=== PATIENT | female | born 1970 | race Caucasian/White ===

== ENCOUNTER 2024-04-06 04:17 | Day surgery (SDC) | payer OTHER ==
[2024-04-06] VITALS (239 sets, daily range): BP systolic 45–172; BP diastolic 33–117
[~2024-04-06] VITALS: Ht 160 cm; Wt 69.6 kg
[2024-04-06] MEDS ORDERED: ALBUTEROL SULFATE 2.5 MG VIAL IN PRN (07:30)
[2024-04-06] MEDS ORDERED: LACTATED RINGER'S 1,000 ML IV PRN ×3 (07:30→19:00)
[2024-04-06] MEDS ORDERED: CYANOCOBALAMIN 500 MCG/TAB ( B12) PO PRN (07:30)
[2024-04-06] MEDS ORDERED: PANTOPRAZOLE SODIUM Sesquihydr 40 MG/TAB PO PRN (07:30)
[2024-04-06] MEDS ORDERED: diazePAM 5 MG/TAB PO PRN ×2 (07:30→08:30)
[2024-04-06] MEDS ORDERED: cloNIDine HCL 0.1 MG/TAB PO PRN (07:30)
[2024-04-06] MEDS ORDERED: SCOPOLAMINE 1.5 MG DIS TD PRN (07:30)
[2024-04-06] MEDS ORDERED: FAMOTIDINE 20 MG/TAB PO PRN (07:30)
[2024-04-06] MEDS ORDERED: ASCORBIC ACID 4,000 MG in SODIUM CHLORIDE 0.9% 1,000 ML IV SCH (08:00)
[2024-04-06 09:00] LABS: BASO% 0.6 % (0-3); EOS% 8.1 % (0-8); HEMATOCRIT 36.8 % (37.0-47.0); HEMOGLOBIN 12.1 g/dl (12.0-16.0); LYMPH% 36.9 % (15-41); MEAN CELL VOLUME 100.8 fL CALC (80.0-100.0); MEAN CORPUSCULAR HGB 33.2 pG CALC (26.0-32.0); MEAN CORPUSCULAR HGB CONC 32.9 g/dL CAL (32.0-36.0); MONO% 7.2 % (2-13); NEUT# 2.58 thou/uL (2.00-7.15); NEUT% 47.2 % (42-76); RED BLOOD COUNT 3.65 mill/uL (4.20-5.60); RED CELL DISTRI WIDTH 12.8 % (11.5-15.5)
[2024-04-06 09:11] LABS: ALBUMIN 4.2 g/dL (3.2-5.0); BILIRUBIN, TOTAL 0.4 mg/dL (0.02-1.3); CREATININE 0.7 mg/dL (0.5-1.0); POTASSIUM 3.9 mmol/l (3.5-5.1); TOTAL PROTEIN 6.9 g/dL (6.3-8.2)
[2024-04-06] MEDS ORDERED: ONDANSETRON HCl 4 MG/2 ML SDV IV PRN ×3 (09:25→19:00)
[2024-04-06] MEDS ORDERED: cloNIDine HYDROCHLORIDE 100 MCG/ML 10 ML INJ IV PRN (09:25)
[2024-04-06] MEDS ORDERED: STERILE WATER FOR IRRIGATION 1,000 ML BTL IR PRN (09:25)
[2024-04-06] MEDS ORDERED: DEXAMETHASONE SODIUM PHOSPHATE PF 10 MG/ML SDV IV PRN ×2 (09:25→19:00)
[2024-04-06] MEDS ORDERED: diazePAM 5 MG/TAB VT PRN (09:25)
[2024-04-06] MEDS ORDERED: NALTREXONE HCL 50 MG/TAB VT PRN (09:25)
[2024-04-06] MEDS ORDERED: LIDOCAINE HCL 1% (10MG/ML) 100 MG/10 ML MDV IV PRN (09:25)
[2024-04-06] MEDS ORDERED: POTASSIUM CHLORIDE 20 MEQ/100 ML BAG IV PRN (09:25)
[2024-04-06] MEDS ORDERED: THIAMINE HCL 100 MG/ML 2ML VIAL IV PRN (09:25)
[2024-04-06] MEDS ORDERED: SUCCINYLCHOLINE CHLORIDE 20 MG/ML 10ML VIAL IV PRN (09:25)
[2024-04-06] MEDS ORDERED: PROPOFOL 100 ML IV PRN (09:25)
[2024-04-06] MEDS ORDERED: MIDAZOLAM HCL 2 MG/2 ML VIAL IV PRN (09:25)
[2024-04-06] MEDS ORDERED: MAGNESIUM SULFATE HEPTAHYDRATE 100 ML IV PRN (09:25)
[2024-04-06] MEDS ORDERED: ROCURONIUM BROMIDE 10 MG/ML 5ML VIAL IV PRN (09:25)
[2024-04-06] MEDS ORDERED: PROPOFOL 10 MG/ML 100ML VIAL IV PRN (09:25)
[2024-04-06] MEDS ORDERED: DiphenhydrAMINE HCL 50 MG/ML SDV IV PRN (09:25)
[2024-04-06] MEDS ORDERED: LIDOCAINE HCL 1% (10MG/ML) 100 MG/10 ML MDV VT PRN ×2 (09:25)
[2024-04-06] MEDS ORDERED: OCTREOTIDE ACETATE 100 MCG/VIAL SDV SC PRN (09:25)
[2024-04-06] MEDS ORDERED: cloNIDine HCL 0.1 MG/TAB VT PRN (09:25)
[2024-04-06] MEDS ORDERED: TRAZODONE100 MG PO (09:30)
[2024-04-06] MEDS ORDERED: LUNESTA2 MG PO (09:32)
[2024-04-06] MEDS ORDERED: LIOTHYRONINE5 MCG PO (09:37)
[2024-04-06] MEDS ORDERED: LOPRESSOR25 M1 PO (09:38)
[2024-04-06] MEDS ORDERED: NEURONTIN600 MG PO ×2 (09:40→09:45)
[2024-04-06] MEDS ORDERED: ZANAFLEX4 MG PO (09:42)
[2024-04-06] MEDS ORDERED: LIDOCAINE HCL 1% (10MG/ML) 100 MG/10 ML MDV IV SCH (17:30)
[2024-04-06] MEDS ORDERED: KETOROLAC TROMETHAMINE 30 MG/ML SDV IV SCH (17:30)
[2024-04-06] MEDS ORDERED: ACETAMINOPHEN 1,000 MG/100 ML VIAL IV SCH (17:30)
[2024-04-06] MEDS ORDERED: PROMETHAZINE HCL 12.5 MG in SODIUM CHLORIDE 0.9% 50 ML IV PRN (19:00)
[2024-04-06] MEDS ORDERED: KETOROLAC TROMETHAMINE 30 MG/ML SDV IV PRN (19:00)
[2024-04-06] MEDS ORDERED: ACETAMINOPHEN 500 MG TAB PO PRN (19:00)
[2024-04-06] MEDS ORDERED: HALOPERIDOL LACTATE 5 MG/ML SDV IV PRN (19:00)
[2024-04-06] MEDS ORDERED: PROMETHAZINE HCL 25 MG in SODIUM CHLORIDE 0.9% 50 ML IV PRN (19:00)
[2024-04-06] MEDS ORDERED: ACETAMINOPHEN 1,000 MG/100 ML VIAL IV PRN (19:00)
[2024-04-06] MEDS ORDERED: PATIENT' OWN MED CONTROLLED 1 EA DOSE IV PRN (21:00)
[2024-04-06] MEDS ORDERED: diazePAM 10 MG/2 ML VIAL IV PRN (21:00)
[2024-04-06] MEDS ORDERED: clonazePAM 1 MG/TAB PO SCH (23:00)
[2024-04-06] MEDS ORDERED: cloNIDine HCL 0.1 MG/TAB PO SCH (23:00)
[2024-04-07] MEDS ORDERED: clonazePAM 1 MG/TAB PO PRN ×2 (04:00→08:00)
[2024-04-07] MEDS ORDERED: cloNIDine HCL 0.1 MG/TAB PO PRN (04:00)
[2024-04-07 04:18] VITALS: BP 151/68
[2024-04-07 05:48] LABS: BASO% 0.3 % (0-3); HEMATOCRIT 38.5 % (37.0-47.0); HEMOGLOBIN 12.9 g/dl (12.0-16.0); IMMATURE GRANULOCYTES 0.1 % (0.0-5.0); LYMPH% 11.4 % (15-41); MEAN CELL VOLUME 99.7 fL CALC (80.0-100.0); MEAN CORPUSCULAR HGB 33.4 pG CALC (26.0-32.0); MEAN CORPUSCULAR HGB CONC 33.5 g/dL CAL (32.0-36.0); MONO% 2.5 % (2-13); NEUT# 6.39 thou/uL (2.00-7.15); NEUT% 85.7 % (42-76); RED BLOOD COUNT 3.86 mill/uL (4.20-5.60); RED CELL DISTRI WIDTH 12.4 % (11.5-15.5)
[2024-04-07 07:24] VITALS: BP 160/74
[2024-04-07] MEDS ORDERED: PANTOPRAZOLE SODIUM Sesquihydr 40 MG/TAB PO SCH (08:00)
[2024-04-07] MEDS ORDERED: NALTREXONE HCL 50 MG/TAB PO SCH ×2 (08:00→15:00)
[2024-04-07] MEDS ORDERED: cloNIDine HCL 0.1 MG/TAB PO SCH ×4 (08:00→23:00)
[2024-04-07] MEDS ORDERED: ACETAMINOPHEN 325 MG/TAB PO SCH (08:00)
[2024-04-07 08:32] LABS: ALBUMIN 4.3 g/dL (3.2-5.0); BILIRUBIN, TOTAL 0.5 mg/dL (0.02-1.3); CREATININE 0.6 mg/dL (0.5-1.0); MAGNESIUM 1.9 mg/dL (1.6-2.3); POTASSIUM 3.8 mmol/l (3.5-5.1); TOTAL PROTEIN 6.8 g/dL (6.3-8.2)
[2024-04-07] MEDS ORDERED: MAGNESIUM OXIDE 400 MG/TAB PO PRN (09:00)
[2024-04-07] MEDS ORDERED: ACETAMINOPHEN 500 MG TAB PO PRN ×2 (09:00→19:00)
[2024-04-07] MEDS ORDERED: Cholecalciferol 2,000 UNIT/TAB PO PRN (09:00)
[2024-04-07] MEDS ORDERED: POTASSIUM CHLORIDE 20 MEQ/TAB PO SCH ×2 (10:30→23:59)
[2024-04-07] MEDS ORDERED: NICOTINE TRANSDERMAL 21 MG/PATCH TD SCH (10:30)
[2024-04-07] MEDS ORDERED: NALTREXONE50 MG PO (10:54)
[2024-04-07] MEDS ORDERED: KLONOPIN2 MG PO (10:57)
[2024-04-07] MEDS ORDERED: CLONIDINE0.1 MG PO (10:57)
[2024-04-07 14:35] VITALS: BP 160/84
[2024-04-07] MEDS ORDERED: hydrALAZINE HCL 20 MG/ML VIAL(1 ML) IV SCH (15:00)
[2024-04-07 18:31] VITALS: BP 171/81
[2024-04-07] MEDS ORDERED: ONDANSETRON HCl 4 MG/2 ML SDV IV PRN ×2 (19:00)
[2024-04-07] MEDS ORDERED: HALOPERIDOL LACTATE 5 MG/ML SDV IV PRN (19:00)
[2024-04-07] MEDS ORDERED: PROMETHAZINE HCL 12.5 MG in SODIUM CHLORIDE 0.9% 50 ML IV PRN (19:00)
[2024-04-07] MEDS ORDERED: ACETAMINOPHEN 1,000 MG/100 ML VIAL IV PRN (19:00)
[2024-04-07] MEDS ORDERED: PROMETHAZINE HCL 25 MG in SODIUM CHLORIDE 0.9% 50 ML IV PRN (19:00)
[2024-04-07] MEDS ORDERED: LACTATED RINGER'S 1,000 ML IV PRN (19:00)
[2024-04-07] MEDS ORDERED: DEXAMETHASONE SODIUM PHOSPHATE PF 10 MG/ML SDV IV PRN (19:00)
[2024-04-07] MEDS ORDERED: KETOROLAC TROMETHAMINE 30 MG/ML SDV IV PRN (19:00)
[2024-04-07] MEDS ORDERED: CYCLOBENZAPRINE HCL 5 MG TAB PO PRN (21:00)
[2024-04-07] MEDS ORDERED: METOPROLOL TARTRATE 25 MG/TAB PO PRN (21:00)
[2024-04-07] MEDS ORDERED: Zaleplon 5 MG/CAP PO PRN (21:00)
[2024-04-07] MEDS ORDERED: clonazePAM 1 MG/TAB PO SCH ×2 (21:00→23:00)
[2024-04-07] MEDS ORDERED: GABAPENTIN 300 MG/CAP PO SCH (21:00)
[2024-04-07 21:02] VITALS: BP 142/66
[2024-04-07 23:00] VITALS: BP 156/91
[2024-04-08] MEDS ORDERED: BISMUTH SUBSALICYLATE 262 MG CHW PO PRN (00:05)
[2024-04-08] MEDS ORDERED: LACTATED RINGER'S 1,000 ML IV PRN (00:05)
[2024-04-08] MEDS ORDERED: cloNIDine HCL 0.1 MG/TAB PO PRN (04:00)
[2024-04-08] MEDS ORDERED: clonazePAM 1 MG/TAB PO PRN ×2 (04:00→08:00)
[2024-04-08 04:12] VITALS: BP 171/88
[2024-04-08 04:36] VITALS: BP 151/92
[2024-04-08 05:21] LABS: MEAN CELL VOLUME 95.2 fL CALC (80.0-100.0); MEAN CORPUSCULAR HGB 33.5 pG CALC (26.0-32.0); MEAN CORPUSCULAR HGB CONC 35.2 g/dL CAL (32.0-36.0); RED BLOOD COUNT 4.81 mill/uL (4.20-5.60)
[2024-04-08 05:25] LABS: ALBUMIN 4.4 g/dL (3.2-5.0); BILIRUBIN, TOTAL 0.6 mg/dL (0.02-1.3); CREATININE 0.5 mg/dL (0.5-1.0); HEMATOCRIT 45.8 % (37.0-47.0); HEMOGLOBIN 16.1 g/dl (12.0-16.0); MAGNESIUM 1.5 mg/dL (1.6-2.3); TOTAL PROTEIN 7.2 g/dL (6.3-8.2)
[2024-04-08 05:27] LABS: POTASSIUM 2.9 mmol/l (3.5-5.1)
[2024-04-08 07:27] VITALS: BP 172/95
[2024-04-08 07:32] VITALS: BP 172/95
[2024-04-08 07:40] VITALS: BP 172/95
[2024-04-08] MEDS ORDERED: cloNIDine HCL 0.1 MG/TAB PO SCH (08:00)
[2024-04-08] MEDS ORDERED: PANTOPRAZOLE SODIUM Sesquihydr 40 MG/TAB PO SCH (08:00)
[2024-04-08] MEDS ORDERED: NALTREXONE HCL 50 MG/TAB PO SCH ×2 (08:00)
[2024-04-08] MEDS ORDERED: ACETAMINOPHEN 325 MG/TAB PO SCH (08:00)
[2024-04-08] MEDS ORDERED: POTASSIUM CHLORIDE 20 MEQ/TAB PO ONE (08:55)
[2024-04-08] MEDS ORDERED: ACETAMINOPHEN 500 MG TAB PO PRN (09:00)
[2024-04-08] MEDS ORDERED: Cholecalciferol 2,000 UNIT/TAB PO PRN (09:00)
[2024-04-08] MEDS ORDERED: MAGNESIUM OXIDE 400 MG/TAB PO PRN (09:00)
[2024-04-08] MEDS ORDERED: MAGNESIUM SULFATE HEPTAHYDRATE 50 ML IV SCH (09:30)
== END 2024-04-08 13:56 | disposition home or self-care (01) | DRG 897 ==
LOC: ANR 04:17 → MS2 04:18 → ANR 11:00 → MS2 18:09 → ANR 04-08 13:56
PROVIDERS: ATTEND Anesthesiology
DX: F11.20 Opioid dependence, uncomplicated (principal)
CPT/HCPCS: J0131; J1100; J2354; J3475